=== PATIENT | male | born 1985 | race African-American/Black ===

== ENCOUNTER 2016-10-05 14:48 | Emergency (ER) | payer SELFPAY ==
[~2016-10-05] VITALS: Ht 177.8 cm; Wt 72.6 kg
[~2016-10-05 14:48] MED LIST: ZITHROMAX PO
== END 2016-10-05 15:45 | disposition left against medical advice (07) ==
LOC: CED 14:48
DX: Z53.21 Procedure and treatment not carried out due to patient leaving prior to being seen by health care provider (principal)